=== PATIENT | male | born 1980 | race Caucasian/White ===

== ENCOUNTER 2016-09-21 18:46 | Emergency (ER) | payer SELFPAY ==
[~2016-09-21] VITALS: Ht 170.2 cm; Wt 83.0 kg
[2016-09-21 18:47] VITALS: BP 137/80; PULSE 89; RESP 14; TEMP 98.4; O2SAT 98
[2016-09-21] MEDS ORDERED: BACT800T5 PO (19:48)
[2016-09-21] MEDS ORDERED: DOXY100C PO (19:48)
--- NOTE | 2016-09-21 19:53 | PD ---
HPI Chief Complaint: Skin Problem Time Seen by Provider: 19:48 Travel History International Travel<30 days: No Contact w/Intl Traveler<30days: No Traveled to known affect area: No History of Present Illness HPI 35-year-old white male presents to emergency department with an abscess to his left antecubital fossa for the past week. He states that he was injecting IV drugs one week ago. It has become increasingly painful, red. Pain is mild. She has some general malaise no fever chills. No vomiting. No abdominal. No numbness, tingling or weakness. PFSH Past Medical History Narrative Medical IV substance abuse Tetanus Vaccination: < 5 Years Past Surgical History Surgical History: No Previous Surgery Social History Alcohol Use: No Tobacco Use: No (VAPE) Substance Use: Yes (COCAINE) Allergies-Medications (Allergen,Severity, Reaction): Coded Allergies: No Known Allergies (Unverified , 09/21/16) Reported Meds & Prescriptions Reported Meds & Active Scripts Active No Active Prescriptions or Reported Medications Review of Systems Except as stated in HPI: all other systems reviewed are Neg Physical Exam Narrative GENERAL: This is a well-nourished, well-developed patient, in no apparent distress. SKIN: Patient has an area of erythema, warmth and induration to the left antecubital fossa. It measures approximately 4 x 6 cm. It is indurated and mildly tender. No fluctuance or pointing. Patient's neurovascular intact distally. He is able to fully extend and flex his elbow. HEAD: Atraumatic. Normocephalic. EYES: PERRL, EOMI, no discharge or injection. No scleral icterus. EARS: Clear NOSE: Nasal turbinates appear normal. THROAT: Mucosa pink and moist. Airway patent. NECK: Trachea midline. supple, moves head freely. LUNGS: Clear to auscultation. CV: Regular in rhythm. ABDOMEN: Soft nontender. EXT: No clubbing cyanosis or edema. Data Data Last Documented VS Vital Signs Date Time Temp Pulse Resp B/P Pulse Ox O2 Delivery O2 Flow Rate FiO2 09/21/16 19:33 89 14 09/21/16 18:47 98.4 137/80 98 Orders Sulfamet-Trimeth Ds 800-160 Mg (Bactrim (09/21/16 20:00) Doxycycline (Vibramycin) (09/21/16 20:00) MDM Medical Decision Making Medical Screen Exam Complete: Yes Emergency Medical Condition: Yes Medical Record Reviewed: Yes Differential Diagnosis MDM: High Differential diagnoses: Abscess, folliculitis, cellulitis, lymphangitis, abrasion, contact dermatitis Narrative Course A bedside ultrasound has been performed and a area of abscess has not been localized. He has a thrombosis in the underlying vein with surrounding inflammatory changes of cellulitis but no localized abscess. Patient's given Bactrim DS and doxycycline 100 mg by mouth. This is left in actual fossa cellulitis, superficial phlebitis Diagnosis Primary Impression: left antecubital fossa cellulitis Additional Impressions: superficial phlebitis IV drug abuse Patient Instructions: General Instructions Additional Instructions: Rest. Elevation. keep clean and dry. Warm compresses. 3 Advil every 6 hours.. Daily wound care with soap, water and Neosporin. Doxycycline and Bactrim DS. Follow-up with a primary care doctor in 3-7 days. Return to the ER for any problems. Med/Other Pt SpecificInfo: Prescription(s) given Scripts Sulfamethoxazole-Trimethoprim (Bactrim DS)800-160 Mg Tab1 Tab PO BID #20 TAB Prov:Rossi Cerda MD 09/21/16 Doxycycline Hyclate 100 Mg [id number] Mg PO BID #20 CAP Prov:Rossi Cerda MD 09/21/16 Disposition: 01 DISCHARGE HOME Condition: Stable Branden Rayo Sep 21, 2016 19:52
[2016-09-21] MEDS ORDERED: SULFAMETHOXAZOLE-TRIMETHOPRIM DS 800-160 MG TAB PO ONE (20:00)
[2016-09-21] MEDS ORDERED: DOXYCYCLINE HYCLATE 100 MG CAP PO ONE (20:00)
== END 2016-09-21 20:20 | disposition home or self-care (01) ==
LOC: NEPK 18:46
DX: L03.114 Cellulitis of left upper limb (principal); I80.8 Phlebitis and thrombophlebitis of other sites; F19.10 Other psychoactive substance abuse, uncomplicated
CPT/HCPCS: 99284

== ENCOUNTER 2017-06-20 19:24 | Emergency (ER) | payer SELFPAY ==
[~2017-06-20] VITALS: Ht 170.2 cm; Wt 100.0 kg
[~2017-06-20 19:24] MED LIST: BACT800T5 PO; DOXY100C PO
[2017-06-20 19:27] VITALS: BP 126/70; PULSE 83; RESP 18; TEMP 98.3; O2SAT 96
[2017-06-20] MEDS ORDERED: DALBAVANCIN INJ 1,500 MG in DEXTROSE 5% IN WATE 500 ML INJ 500 ML IV STA ×2 (19:44)
[2017-06-20] MEDS ORDERED: ASP: Does not meet inpatient admission criteria OTHER ONE (19:45)
[2017-06-20] MEDS ORDERED: ASP: Only reason for admit - IV antibiotics OTHER ONE (19:45)
[2017-06-20] MEDS ORDERED: ASP: Location of Dalbavancin administration OTHER ONE (19:45)
[2017-06-20] MEDS ORDERED: ASP: No known hypersensitivity to Vanco, Telavancin, Dalbavancin OTHER ONE (19:45)
[2017-06-20] MEDS ORDERED: MISCELLANEOUS PHARMACY INFORMATION XX ONE (19:45)
--- NOTE | 2017-06-20 20:07 | PD ---
HPI Chief Complaint: Skin Problem Time Seen by Provider: 19:37 Travel History International Travel<30 days: No Contact w/Intl Traveler<30days: No Traveled to known affect area: No History of Present Illness HPI Patient is a 36-year-old male presenting to emerge from for evaluation of an abscess to his right posterior forearm and right hand. Patient admits to injecting crack cocaine mixed with vinegar. Symptoms started 1 week ago, he reports that his girlfriend attempted to drain it with a clean box toe cementer that was sterilized with alcohol prior to arrival today in the emergency department. He denies any fever, chills, nausea, vomiting. He reports that he had been clean for a while and used last week. Symptom onset was gradual, symptom severity is moderate, there are no alleviating factors. PFSH Past Medical History Medical History: Denies Significant Hx Diminished Hearing: No Tetanus Vaccination: Unknown Influenza Vaccination: No Past Surgical History Surgical History: No Previous Surgery Social History Alcohol Use: Yes (occasionally) Tobacco Use: Yes (VAPE) Substance Use: Yes (COCAINE, marijania) Allergies-Medications (Allergen,Severity, Reaction): Coded Allergies: No Known Allergies (Unverified Allergy, Unknown, 06/20/17) Reported Meds & Prescriptions Reported Meds & Active Scripts Active Bactrim DS (Sulfamethoxazole-Trimethoprim) 800-160 Mg Tab 1 Tab PO BID Doxycycline Hyclate 100 Mg Cap 100 Mg PO BID Review of Systems Except as stated in HPI: all other systems reviewed are Neg Musculoskeletal: Positive: Myalgias Skin: Positive Lumps, Positive Change in Pigmentation Physical Exam Narrative GENERAL: Well-developed, well-nourished, alert male. Presenting in no acute distress. SKIN: Warm and dry. 5 x 4 cm area of induration fluctuance to right posterior forearm. Mild erythema to first interdigital space on the right hand. HEAD: Normocephalic. EYES: No scleral icterus. No injection or drainage. NECK: Supple, trachea midline. No JVD or lymphadenopathy. CARDIOVASCULAR: Regular rate and rhythm without murmurs, gallops, or rubs. RESPIRATORY: Breath sounds equal bilaterally. No accessory muscle use. GASTROINTESTINAL: Abdomen soft, non-tender, nondistended. MUSCULOSKELETAL: No cyanosis, or edema. 2+ radial pulse. Brisk less than 3 second capillary refill. BACK: Nontender without obvious deformity. No CVA tenderness. Data Data Last Documented VS Vital Signs Date Time Temp Pulse Resp B/P (MAP) Pulse Ox O2 Delivery O2 Flow Rate FiO2 06/20/17 19:27 98.3 83 18 126/70 (88) 96 Orders Orders Complete Blood Count With Diff (06/20/17 19:44) Comprehensive Metabolic Panel (06/20/17 19:44) Blood Culture (06/20/17 19:44) Case Management Consult (06/20/17 ) Asp:No Reaction To [facility]/Vanc (Asp Crit (06/20/17 19:45) Asp: Does Not Meet Inpt Admit (Asp Crit: (06/20/17 19:45) Asp: Iv Antibiotics Admit Only (Asp Crit (06/20/17 19:45) Asp: Location Of [facility] Admin (Asp Crit: (06/20/17 19:45) [facility] Information ([facility] (06/20/17 19:45) Dalbavancin Inj (Dalvance Inj) (06/20/17 19:44) [facility] (06/20/17 19:44) Document (06/20/17 19:44) Measurements (06/20/17 19:44) Iv Access Insert/Monitor (06/20/17 19:44) Wound Culture And Gram Stain (06/20/17 20:49) Labs Laboratory Tests Test 06/20/17 20:30 White Blood Count 11.8 TH/MM3 Red Blood Count 4.41 MIL/MM3 Hemoglobin 12.9 GM/DL Hematocrit 38.2 % Mean Corpuscular Volume 86.7 FL Mean Corpuscular Hemoglobin 29.2 PG Mean Corpuscular Hemoglobin Concent 33.7 % Red Cell Distribution Width 13.6 % Platelet Count 326 TH/MM3 Mean Platelet Volume 5.9 FL Neutrophils (%) (Auto) 63.3 % Lymphocytes (%) (Auto) 24.3 % Monocytes (%) (Auto) 8.0 % Eosinophils (%) (Auto) 4.0 % Basophils (%) (Auto) 0.4 % Neutrophils # (Auto) 7.5 TH/MM3 Lymphocytes # (Auto) 2.9 TH/MM3 Monocytes # (Auto) 0.9 TH/MM3 Eosinophils # (Auto) 0.5 TH/MM3 Basophils # (Auto) 0.1 TH/MM3 CBC Comment DIFF FINAL Differential Comment Blood Urea Nitrogen 12 MG/DL Creatinine 0.98 MG/DL Random Glucose 89 MG/DL Total Protein 8.0 GM/DL Albumin 3.8 GM/DL Calcium Level 9.1 MG/DL Alkaline Phosphatase 122 U/L Aspartate Amino Transf (AST/SGOT) 34 U/L Alanine Aminotransferase (ALT/SGPT) 43 U/L Total Bilirubin 0.3 MG/DL Sodium Level 137 MEQ/L Potassium Level 4.2 MEQ/L Chloride Level 104 MEQ/L Carbon Dioxide Level 26.2 MEQ/L Anion Gap 7 MEQ/L Estimat Glomerular Filtration Rate 86 ML/MIN MDM Medical Decision Making Medical Screen Exam Complete: Yes Emergency Medical Condition: Yes Interpretation(s) Laboratory Tests Test 06/20/17 20:30 White Blood Count 11.8 TH/MM3 Red Blood Count 4.41 MIL/MM3 Hemoglobin 12.9 GM/DL Hematocrit 38.2 % Mean Corpuscular Volume 86.7 FL Mean Corpuscular Hemoglobin 29.2 PG Mean Corpuscular Hemoglobin Concent 33.7 % Red Cell Distribution Width 13.6 % Platelet Count 326 TH/MM3 Mean Platelet Volume 5.9 FL Neutrophils (%) (Auto) 63.3 % Lymphocytes (%) (Auto) 24.3 % Monocytes (%) (Auto) 8.0 % Eosinophils (%) (Auto) 4.0 % Basophils (%) (Auto) 0.4 % Neutrophils # (Auto) 7.5 TH/MM3 Lymphocytes # (Auto) 2.9 TH/MM3 Monocytes # (Auto) 0.9 TH/MM3 Eosinophils # (Auto) 0.5 TH/MM3 Basophils # (Auto) 0.1 TH/MM3 CBC Comment DIFF FINAL Differential Comment Blood Urea Nitrogen 12 MG/DL Creatinine 0.98 MG/DL Random Glucose 89 MG/DL Total Protein 8.0 GM/DL Albumin 3.8 GM/DL Calcium Level 9.1 MG/DL Alkaline Phosphatase 122 U/L Aspartate Amino Transf (AST/SGOT) 34 U/L Alanine Aminotransferase (ALT/SGPT) 43 U/L Total Bilirubin 0.3 MG/DL Sodium Level 137 MEQ/L Potassium Level 4.2 MEQ/L Chloride Level 104 MEQ/L Carbon Dioxide Level 26.2 MEQ/L Anion Gap 7 MEQ/L Estimat Glomerular Filtration Rate 86 ML/MIN Vital Signs Date Time Temp Pulse Resp B/P (MAP) Pulse Ox O2 Delivery O2 Flow Rate FiO2 06/20/17 19:27 98.3 83 18 126/70 (88) 96 Differential Diagnosis Abscess versus cellulitis versus metabolic abnormality versus other Narrative Course Patient is a 36-year-old IV drug user presenting for evaluation of abscess and cellulitis. His vital signs are stable, labs and imaging ordered and pending. Patient is candidate for Dalvance. Please see procedure report for I&D. Labs reviewed, no acute findings identified. Patient is currently receiving Dalvance. He was educated on wound care. He was strongly encouraged to avoid any further IV drug use. He was encouraged to follow-up with Giovani Tariq. Wound was not packed due to very little drainage. Patient was encouraged to return to emergency department for any new or worsening symptoms. Patient girlfriend verbalized understanding of these instructions. Patient stable for discharge. Procedures Procedure Narrative After the risks and benefits were discussed the following procedure was performed: INCISION AND DRAINAGE OF ABSCESS: The area was prepped and was sterilely draped. A subcutaneous wheal of 1 % Xylocaine with a total number 1 mL was used to anesthetize the area. The area was properly anesthetized. A number 11 scalpel was used to make a 1 -cm incision across the area of the abscess. Cultures were obtained. The abscess was drained an irrigated with normal saline. Sterile dressing applied. Diagnosis Primary Impression: Cellulitis of right upper extremity Additional Impressions: Abscess IV drug user Referrals: [facility] Primary Care Physician Patient Instructions: Abscess (GEN), Abscess Incision and Drainage (DC), Acute Wound Care (DC), Cellulitis (DC), General Instructions Additional Instructions: Change dressings daily and as needed for soiling Apply nonocclusive, breathable dressing Apply topical antibiotic ointment as prescribed Follow-up with a primary doctor at the [facility] clinic Follow-up with Giovani Tariq Return to emergency department for any new or worsening symptoms Med/Other Pt SpecificInfo: Prescription(s) given Scripts Ibuprofen (Ibuprofen) 800 Mg Tab 800 MG PO Q6HR Y for PAIN, #40 TAB 0 Refills Prov: Sepideh Ozuna 06/20/17 Mupirocin Topical (Mupirocin Topical) 2 % Oint 1 APPLIC TOPICAL BID for Mgmt Bacterial Infection, #22 GM 0 Refills Prov: Sepideh Ozuna 06/20/17 Disposition: 01 DISCHARGE HOME Condition: Stable Sepideh Ozuna Jun 20, 2017 20:07
[2017-06-20 20:48] LABS: AUTOMATED NEUTROPHIL # 7.5 TH/MM3 (1.8-7.7); BASOPHIL # 0.1 TH/MM3 (0-0.2); BASOPHIL % 0.4 % (0.0-2.0); EOSINOPHIL # 0.5 TH/MM3 (0-0.4); HEMATOCRIT 38.2 % (39.0-51.0); HEMOGLOBIN 12.9 GM/DL (13.0-17.0); LYMPH % 24.3 % (9.0-44.0); LYMPHOCYTE # 2.9 TH/MM3 (1.0-4.8); MEAN CELL VOLUME 86.7 FL (80.0-100.0); MEAN CORPUSCULAR HEMOGLOBIN 29.2 PG (27.0-34.0); MEAN CORPUSCULAR HGB CONC 33.7 % (32.0-36.0); MEAN PLATELET VOLUME 5.9 FL (7.0-11.0); MONOCYTE # 0.9 TH/MM3 (0-0.9); NEUT % 63.3 % (16.0-70.0); PLATELET COUNT 326 TH/MM3 (150-450); RED BLOOD COUNT 4.41 MIL/MM3 (4.50-5.90); RED CELL DISTRIBUTION WIDTH 13.6 % (11.6-17.2); WHITE BLOOD COUNT 11.8 TH/MM3 (4.0-11.0)
[2017-06-20 21:08] LABS: ALBUMIN 3.8 GM/DL (3.4-5.0); AST (GOT) 34 U/L (15-37); BICARBONATE 26.2 MEQ/L (21.0-32.0); BLOOD UREA NITROGEN 12 MG/DL (7-18); CALCIUM 9.1 MG/DL (8.5-10.1); CHLORIDE 104 MEQ/L (98-107); CREATININE 0.98 MG/DL (0.60-1.30); GLOMERULAR FILTRATION RATE 86 ML/MIN (>89); GLUCOSE,RANDOM 89 MG/DL (74-106); SODIUM (NA) 137 MEQ/L (136-145)
[2017-06-20 21:09] LABS: ALT (GPT) 43 U/L (12-78)
[2017-06-20 21:12] LABS: ALKALINE PHOSPHATASE 122 U/L (45-117); TOTAL BILIRUBIN ADULT 0.3 MG/DL (0.2-1.0)
[2017-06-20] MEDS ORDERED: MUPI2OIN TOPICAL (21:43)
[2017-06-20] MEDS ORDERED: IBUP1TAB7 PO (21:43)
== END 2017-06-20 21:53 | disposition home or self-care (01) ==
LOC: NEPD 19:24
DX: L03.113 Cellulitis of right upper limb (principal); L02.413 Cutaneous abscess of right upper limb; B95.61 Methicillin susceptible Staphylococcus aureus infection as the cause of diseases classified elsewhere; F14.90 Cocaine use, unspecified, uncomplicated; F12.90 Cannabis use, unspecified, uncomplicated; Z72.0 Tobacco use
CPT/HCPCS: 10060; 80053; 85025; 86403; 87040; 87070; 87186; 96365; 99283; J0875; J7060; 87205

== ENCOUNTER 2017-09-06 16:18 | Emergency (ER) | payer SELFPAY ==
[~2017-09-06] VITALS: Ht 172.7 cm; Wt 105.0 kg
[~2017-09-06 16:18] MED LIST changes: +IBUP1TAB7 PO; +MUPI2OIN TOPICAL
[2017-09-06 16:40] VITALS: BP 118/74; PULSE 91; RESP 16; TEMP 99.3; O2SAT 95
--- NOTE | 2017-09-06 18:15 | PD ---
HPI Chief Complaint: Wound/Suture/Staple Re-Check Time Seen by Provider: 18:01 Travel History International Travel<30 days: No Contact w/Intl Traveler<30days: No Traveled to known affect area: No History of Present Illness HPI 36-year-old male presents to the emergency room for packing removal. Patient had packing placed to his left medial hypothenar eminence 3 days ago at a hospital in [facility] where he was detoxing.. States he developed an abscess after injecting cocaine into the area. He was discharged with prescription for doxycycline but never had it filled because he cannot afford it. He has been keeping the area clean and dry and changing the dressing daily. States he remembers seeing a small tab sticking out of the wound when she packed it but noticed it disappear while he was doing his dressing changes. He reports significant improvement in symptoms. He has improvement in redness , swelling, and pain. PFSH Past Medical History Diminished Hearing: No Social History Alcohol Use: Yes (occasionally) Tobacco Use: Yes (VAPE) Substance Use: Yes (COCAINE, marijania) Allergies-Medications (Allergen,Severity, Reaction): Coded Allergies: No Known Allergies (Unverified Allergy, Unknown, 06/20/17) Reported Meds & Prescriptions Reported Meds & Active Scripts Active Ibuprofen 800 Mg Tab 800 Mg PO Q6HR PRN Mupirocin Topical (Mupirocin) 2 % Oint 1 Applic TOPICAL BID Bactrim DS (Sulfamethoxazole-Trimethoprim) 800-160 Mg Tab 1 Tab PO BID Doxycycline Hyclate 100 Mg Cap 100 Mg PO BID Review of Systems Except as stated in HPI: all other systems reviewed are Neg Physical Exam Narrative GENERAL: Well-nourished, well-developed male in no acute distress. Afebrile. Ambulatory. SKIN: Focused skin assessment warm/dry. There is an indurated area in the left medial hypothenar eminence which measures about 2 cm in diameter. There is a small, healing incision site without surrounding erythema or lymphangitis. Minimal drainage. Nontender. HEAD: Normocephalic. EYES: No scleral icterus. No injection or drainage. NECK: Supple, trachea midline. No JVD or lymphadenopathy. CARDIOVASCULAR: Regular rate and rhythm without murmurs, gallops, or rubs. RESPIRATORY: Breath sounds equal bilaterally. No accessory muscle use. MUSCULOSKELETAL: No cyanosis, or edema. Full range of motion of the left hand. Less than 2 second capillary refill distally. Data Data Last Documented VS Vital Signs Date Time Temp Pulse Resp B/P (MAP) Pulse Ox O2 Delivery O2 Flow Rate FiO2 09/06/17 16:40 99.3 91 16 118/74 (89) 95 MDM Medical Decision Making Medical Screen Exam Complete: Yes Emergency Medical Condition: No Medical Record Reviewed: No Differential Diagnosis Abscess, packing removal, wound recheck Narrative Course 36-year-old right-handed male presents to the emergency room for packing removal. Patient had packing placed 3 days ago at [facility] after having incision and drainage of an abscess on his left hand. He did not fill the doxycycline. Physical exam reveals open abscess to the left medial hypothenar eminence. Packing fell out with previous dressing changes. There is no evidence of infection at this time. Patient still has a prescription for doxycycline. He was given signs of infection for which he should start the antibiotics. There are no urgent or emergent medical conditions. A medical screening exam was performed: At the time of evaluation the presenting medical condition was determined not to be of an emergent nature. The patient was given the option of receiving additional care, but declined. Patient was given options for additional community resources from which to obtain care. The Patient Has Been advised to seek medical attention for their presenting complaint. The patient has been advised to return to the ER at any time if an emergent condition develops. Diagnosis Primary Impression: Encounter for medical screening examination Referrals: Primary Care Physician Disposition: 01 DISCHARGE HOME Condition: Stable Marilyn Ibrahim Sep 06, 2017 18:15
== END 2017-09-06 18:30 | disposition left against medical advice (07) ==
LOC: NEPK 16:18
DX: L02.512 Cutaneous abscess of left hand (principal); F12.90 Cannabis use, unspecified, uncomplicated; F14.90 Cocaine use, unspecified, uncomplicated
CPT/HCPCS: 99281